=== PATIENT | male | born 1970 | race Hispanic/Latino ===

== ENCOUNTER 2017-02-28 20:54 | Emergency (ER) | payer SELFPAY ==
[2017-02-28] MEDS: TYLENOL PO ONE (22:48)
[2017-02-28 23:34] LABS: Basophils % (Auto) 0.7 % (0.0-1.8); Eosinophils % (Auto) 1.9 % (0.0-4.3); Hematocrit 42.7 % (35.5-45.6); Hemoglobin 14.6 gm/dl (11.8-15.2); Mean Corpuscular HGB Conc 34 % (32-34); Mean Corpuscular Hemoglobin 32 pg (28-32); Mean Corpuscular Volume 93 fl (84-94); Platelet Count 271 K/mm3 (140-440); Red Blood Count 4.59 M/mm3 (3.65-5.03); Red Cell Distribution Width 12.7 % (13.2-15.2); White Blood Count 11.4 K/mm3 (4.5-11.0)
[2017-02-28 23:40] LABS: Anion Gap 18 mmol/L; Blood Urea Nitrogen 18 mg/dL (9-20); Calcium 9.1 mg/dL (8.4-10.2); Carbon Dioxide 29 mmol/L (22-30); Chloride 98.3 mmol/L (98-107); Glucose 111 mg/dL (75-100); Potassium 4.4 mmol/L (3.6-5.0); Sodium 141 mmol/L (137-145)
[2017-03-01] MEDS: MORPHINE IV ONE (03:25)
[2017-03-01] MEDS: TORADOL IV ONE (03:27)
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
[2017-03-01] MEDS: VIBRAMYCIN PO ONE (04:07)
[2017-03-01 05:38] VITALS: BP 156/91
--- NOTE | 2017-03-01 08:17 | XRay Report ---
LEFT FOREARM TWO VIEWS : 02/28/17 20:54:00 CLINICAL: Trauma and pain. FINDINGS: Normal bones, joints and soft tissues. No fracture or dislocation. IMPRESSION: Normal.
--- NOTE | 2017-03-01 08:18 | XRay Report ---
LEFT HAND THREE VIEWS: 02/28/17 20:54:00 CLINICAL: Pain and swelling after fall 2 days ago. FINDINGS: No fracture or dislocation. Moderate soft tissue swelling of the hand and wrist. No foreign body or soft tissue air. The joint spaces are normal. IMPRESSION: Nonspecific soft tissue swelling. No bony injury.
--- NOTE | 2017-03-01 08:19 | XRay Report ---
LEFT WRIST THREE VIEWS:02/28/17 20:54:00 CLINICAL: Pain. Fall 2 days ago. FINDINGS: Normal bones and joints. No fracture or dislocation. Moderate soft tissue swelling. No foreign body or soft tissue air. IMPRESSION: Soft tissue swelling and otherwise negative.
== END 2017-03-01 05:38 | disposition home or self-care (01) ==
LOC: ED 20:54
DX: M25.532 Pain in left wrist (principal); F17.200 Nicotine dependence, unspecified, uncomplicated; W20.8XXA Other cause of strike by thrown, projected or falling object, initial encounter; Y93.89 Activity, other specified; Y92.89 Other specified places as the place of occurrence of the external cause; Y99.8 Other external cause status
CPT/HCPCS: 29125; 36415; 73090; 73110; 73130; 80048; 85025; 99284; J1885; J2270

== ENCOUNTER 2018-06-08 19:31 | Emergency (ER) | payer SELFPAY ==
[2018-06-08 20:42] LABS: Basophils # (Auto) 0.1 K/mm3 (0.0-0.1); Basophils % (Auto) 1.2 % (0.0-1.8); Eosinophils # (Auto) 0.1 K/mm3 (0.0-0.4); Eosinophils % (Auto) 0.9 % (0.0-4.3); Hematocrit 46.7 % (35.5-45.6); Hemoglobin 16.2 gm/dl (11.8-15.2); Lymphocytes # (Auto) 3.1 K/mm3 (1.2-5.4); Lymphocytes % (Auto) 32.5 % (13.4-35.0); Mean Corpuscular HGB Conc 35 % (32-34); Mean Corpuscular Hemoglobin 34 pg (28-32); Mean Corpuscular Volume 98 fl (84-94); Monocytes # (Auto) 0.7 K/mm3 (0.0-0.8); Monocytes % (Auto) 6.9 % (0.0-7.3); Red Blood Count 4.79 M/mm3 (3.65-5.03); Red Cell Distribution Width 13.4 % (13.2-15.2)
[2018-06-08 20:43] LABS: Platelet Count 200 K/mm3 (140-440)
[2018-06-08 21:00] VITALS: BP 157/101
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
[2018-06-08 21:27] LABS: BUN/Creatinine Ratio 19; Blood Urea Nitrogen 15 mg/dL (9-20); Calcium 8.9 mg/dL (8.4-10.2); Hemolysis Index 47
--- NOTE | 2018-06-08 21:49 | XRay Report ---
FINAL REPORT EXAM: XR CHEST 1V AP HISTORY: Shortness of breath TECHNIQUE: upright single view chest PRIORS: None. FINDINGS: Cardiac and mediastinal contours are unremarkable. Right hilar calcifications are noted consistent with remote granulomatous disease. No focal pulmonary infiltrate is identified. No pleural fluid collection seen. Pulmonary vasculature is unremarkable. IMPRESSION: No acute abnormality identified in the chest
[2018-06-08 22:29] LABS: Bilirubin,Urine NEG (Negative); Blood,Urine NEG (Negative); Color,Urine Yellow (Yellow); Mucus,Urine 1+ /HPF; Protein,Urine <15 mg/dL mg/dL (Negative)
[2018-06-08 22:30] LABS: Alanine Aminotransferase 96 units/L (7-56); Albumin 4.1 g/dL (3.9-5)
[2018-06-08 22:41] LABS: Bilirubin,Direct < 0.2 mg/dL (0-0.2)
[2018-06-08 22:42] LABS: Cocaine Screen,Urine PRESUMPTIVE NEGATIVE; Methadone Screen,Urine PRESUMPTIVE NEGATIVE; Opiate Screen,Urine PRESUMPTIVE NEGATIVE
[2018-06-08] MEDS ORDERED: NACL 0.9% 1000 ML 1,000 ML ONE (22:45)
[2018-06-08 22:55] LABS: Amphetamine Screen,Urine PRESUMPTIVE POSITIVE; Benzodiazepines Screen,Urine PRESUMPTIVE POSITIVE; Cannabinoid Screen,Urine PRESUMPTIVE POSITIVE
== END 2018-06-08 23:15 | disposition left against medical advice (07) ==
LOC: ED 19:31
DX: R07.89 Other chest pain (principal); R06.02 Shortness of breath; R05 Cough; F17.200 Nicotine dependence, unspecified, uncomplicated; I10 Essential (primary) hypertension; F12.10 Cannabis abuse, uncomplicated; Z90.49 Acquired absence of other specified parts of digestive tract
CPT/HCPCS: 36415; 71045; 80048; 80074; 80307; 81001; 83880; 84484; 85025; 85379; 93005; 93010; 99284; J7030

== ENCOUNTER 2018-07-04 19:29 | Emergency (ER) | payer SELFPAY ==
[2018-07-04 19:43] VITALS: BP 179/115
[2018-07-04] MEDS ORDERED: ULTRAM PO ONE (20:11)
[2018-07-04] MEDS ORDERED: ULTRAM ONE (20:14)
--- NOTE | 2018-07-04 20:48 | XRay Report ---
FINAL REPORT EXAM: XR FOOT 3+V LT HISTORY: pain/swelling r/t embedded glass TECHNIQUE: 3 views of left foot. PRIORS: None. FINDINGS: No apparent fracture or dislocation. Joint spaces maintained. Mild plantar calcaneal spurring. Soft tissues grossly unremarkable. IMPRESSION: 1. No acute osseous abnormality.
[2018-07-04] MEDS ORDERED: MOTRIN ONE (22:57)
[2018-07-04] MEDS ORDERED: MOTRIN PO ONE (23:00)
[2018-07-05] MEDS ORDERED: NORCO 5/325 PO ONE (03:00)
[2018-07-05] MEDS ORDERED: NORCO 5/325 ONE (03:04)
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
[2018-07-05] MEDS ORDERED: ANCEF IM ONE (03:48)
== END 2018-07-05 04:15 | disposition home or self-care (01) ==
LOC: ED 19:29
DX: S91.332A Puncture wound without foreign body, left foot, initial encounter (principal); I10 Essential (primary) hypertension; F17.200 Nicotine dependence, unspecified, uncomplicated; Z90.89 Acquired absence of other organs; W25.XXXA Contact with sharp glass, initial encounter; Y93.89 Activity, other specified; Y92.89 Other specified places as the place of occurrence of the external cause; Y99.8 Other external cause status
CPT/HCPCS: 10060; 73630; 96372; 99283; J0690